=== PATIENT | male | born 2000 | race Caucasian/White ===

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

== ENCOUNTER 2020-02-14 16:27 | Emergency (ER) | payer BC ==
[~2020-02-14] VITALS: Ht 172.7 cm; Wt 103.1 kg
[2020-02-14 17:30] VITALS: Ht 172.7 cm; Wt 103.1 kg
[2020-02-14 19:42] VITALS: BP 158/83
== END 2020-02-14 19:42 | disposition home or self-care (01) ==
LOC: ED 16:27
DX: L60.0 Ingrowing nail (principal); Z88.1 Allergy status to other antibiotic agents
CPT/HCPCS: J2001